=== PATIENT | male | born 1935 | race Caucasian/White ===

== ENCOUNTER → 2018-01-01 | Outpatient (CLI) | payer OTHER ==
[~2018-01-01] MED LIST: OPTIRAY 320 IV PRN
--- NOTE | 2018-01-01 12:23 | DIAGNOSTIC IMAGING REPORT ---
CT SCAN OF THE CHEST WITH IV CONTRAST CLINICAL HISTORY: Vocal cord paralysis. COMPARISON STUDY: PET/CT dated 11/16/1999. TECHNIQUE: Following the IV administration of 70 cc of Optiray 320, CT scan of the thorax was performed from the thoracic inlet to the upper abdomen. Images are reviewed in the axial, sagittal, and coronal planes. IV contrast was administered without complication. A dose lowering technique was utilized adhering to the principles of ALARA. The examination is degraded by streak artifact from the patient's arms which could not be elevated above the chest. CT DOSE: 856.77 mGycm FINDINGS: Thyroid: Imaged portions of the thyroid gland are normal in size and attenuation. Thoracic aorta: There is atherosclerotic calcification of the thoracic aorta. The arch demonstrates standard 3-vessel anatomy. The thoracic aorta is not well opacified. There is interstitial dilatation of the ascending thoracic aorta which measures up to 5.0 cm in diameter. Pulmonary vasculature: The main pulmonary arteries are markedly dilated indicating pulmonary artery hypertension. There are no filling defects identified in the central pulmonary vessels to indicate pulmonary embolus. Note that this examination was not protocoled for evaluation of the pulmonary arteries. Heart: The heart is markedly enlarged and without pericardial effusion. The coronary arteries are densely calcified. Lungs and pleural spaces: Advanced emphysematous change is identified. There is a 3.8 x 4.1 x 3.2 cm spiculated mass lesion with central cavitation identified in the right upper lobe seen on image #133. A spiculated left apical mass seen on image #64 measures 5.8 x 3.5 x 4.6 cm. There is intralobular septal thickening and nodularity throughout the left upper lobe suggesting lymphangitic spread of tumor. A 3.0 cm focus of pleural-based nodularity at the right lung base is seen #230. 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 There are small to moderate left and trace right pleural effusions. Mediastinum: There is no mediastinal lymphadenopathy. Jacinta: Clear. Axillae: There is no axillary lymphadenopathy. Upper abdomen: The partially imaged kidneys are atrophic. Cysts are present in the upper poles and measure up to 6.5 cm. A 2.1 cm left adrenal nodule meets CT criteria for a fat-containing adenoma. Small adenomas are also identified in the right adrenal gland. Scattered hepatic cysts measure up to 1.6 cm. Additional subcentimeter hepatic hypodensities also likely represent cysts but are too small for definitive characterization. Mild nodularity of the hepatic surface contour suggests early change of cirrhosis. Skeletal structures: The skeletal structures are osteopenic. There are moderate and age indeterminant compression deformities of T12 and L1, new from the 2009 examination. No lytic or blastic bony lesions are seen. Degenerative change is noted throughout the thoracic spine and in the shoulders. IMPRESSION: 1. Marked cardiomegaly and advanced emphysema with evidence of pulmonary artery hypertension. 2. There is a 5.8 cm spiculated mass at the left apex. This should be considered lung cancer until proven otherwise. Intralobular septal thickening nodularity throughout the left upper lobe is concerning for lymphangitic spread of tumor. 3. There is a 4.1 cm spiculated mass lesion in the right upper lobe with central cavitation. This should also be considered neoplasm until proven otherwise. 4. A 3 cm focus of pleural-based nodularity at the right lung base is indeterminant and a pleural metastasis is not excluded. 5. There is aneurysmal dilatation of the ascending thoracic aorta which measures up to 5.0 cm. 6. 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 7. Small to moderate left and trace right pleural effusions. 8. Nodularity of the hepatic surface contour suggests early change of cirrhosis. 9. Additional findings as above. Electronically signed by: Faraz Biswas M.D. 01/01/2018 12:22 PM Dictated Date/Time: 01/01/2018 12:07 PM
--- NOTE | 2018-01-01 12:31 | DIAGNOSTIC IMAGING REPORT ---
CT SCAN OF THE PARANASAL SINUSES CLINICAL HISTORY: Chronic sinusitis. COMPARISON STUDY: No priors. TECHNIQUE: High-resolution CT scan of the paranasal sinuses is performed. Images are reviewed in the axial, sagittal, and coronal planes. IV contrast was not administered for this examination. A dose lowering technique was utilized adhering to the principles of ALARA. CT DOSE: 642.74 mGycm FINDINGS: Maxillary antra: Trace dependent mucosal thickening is seen in the left. Clear on the right. Anterior ethmoid sinuses: Trace mucosal thickening is seen bilaterally. Posterior ethmoid sinuses: Clear. Sphenoid sinuses: Trace mucosal thickening seen in the left. Clear on the right. Frontal sinuses: Trace mucosal thickening is seen bilaterally. Ostiomeatal complexes: Patent bilaterally. An antrectomy defect is suggested in the left. Frontoethmoidal and sphenoethmoidal recesses: Patent bilaterally. Carotid arteries: The carotid arteries are covered and without septal attachments. Ethmoid roofs: The ethmoid roofs are symmetric. Nasal turbinates: A normal left middle nasal turbinate is not identified. Nasal septum: There is leftward deviation of the bony nasal septum anteriorly and rightward deviation posteriorly. Optic nerves: Covered. Orbits: The bony orbits are intact. Orbital contents are normal in appearance noting bilateral ocular lens implants. Calvarium: The skeletal structures are osteopenic. The imaged calvarium is normal in appearance Mastoid air cells: There are trace mastoid effusions. Brain parenchyma: Partially visualized brain parenchyma is within normal limits noting age-related involutional change. IMPRESSION: Minimal paranasal sinus disease as above. Electronically signed by: Faraz Biswas M.D. 01/01/2018 12:30 PM Dictated Date/Time: 01/01/2018 12:25 PM
== END | disposition home or self-care (01) ==
LOC: C.CTS 11:31
PROVIDERS: ATTEND Otolaryngology
DX: J38.00 Paralysis of vocal cords and larynx, unspecified (principal); J32.9 Chronic sinusitis, unspecified; I51.7 Cardiomegaly; J43.9 Emphysema, unspecified; I27.20 Pulmonary hypertension, unspecified; R91.1 Solitary pulmonary nodule; K76.9 Liver disease, unspecified

== ENCOUNTER → 2018-03-19 | Outpatient (CLI) | payer OTHER ==
[~2018-03-19] MED LIST changes: +FRS/40 PO; +LISI-729 PO; +METO50TA16 PO; +MULT-506 PO; -OPTIRAY 320 IV PRN; +OXGN; +POTA-639 PO; +RRALBUT2.5 NEB; +SENNTAB23 PO; +SIMV80TA2 PO; +SPIR25TA PO; +VNTHFA/IN INH; +WARF5TAB7 PO
--- NOTE | 2018-03-19 14:16 | DIAGNOSTIC IMAGING REPORT ---
PET/CT HISTORY: NON SMALL CELL LUNG CANCER TECHNIQUE: PET/CT was performed from the base of the skull through the pelvis following the intravenous administration of 13.7 mCi of F18-FDG. Non-contrast CT imaging was performed over the same range without breath-hold for attenuation correction of PET images and anatomic correlation, but not for primary interpretation as it is not of standard diagnostic quality. CT DOSE: COMPARISON: Chest CT 02/26/2018. FINDINGS: HEAD AND NECK: There is no FDG-avid disease or significant lymphadenopathy in the imaged portions of the head and the neck. CHEST: There is a single 5 mm FDG avid left subpectoral lymph node on image 55. This demonstrates an SUV max of 2.6. Partially loculated moderate left pleural effusion is again noted. This does not demonstrate significant FDG uptake. There is also a trace right pleural effusion. Scattered calcified pleural plaques and cardiomegaly are again noted. No FDG avid or enlarged mediastinal or hilar lymph nodes. Emphysema. There is a 5 cm left apical mass demonstrating FDG uptake with an SUV max of 14.7. Small branching adjacent nodule within the left upper lobe on image 60 which also demonstrate FDG uptake. This is consistent with a metastatic focus. There is mild interstitial thickening within the left lung apex adjacent to the large mass. This remains unchanged. There is a new 1 cm FDG avid left lower lobe nodule on image 79. This demonstrates an SUV max of 4.4. FDG avid left lower lobe cavitating 1.6 cm nodule is not significantly changed. 3 cm subpleural nodular density within the right lower lobe posteriorly does not demonstrate significant FDG uptake and likely represents round atelectasis. A 4.2 cm cavitary FDG avid mass within the right middle lobe demonstrates an SUV max of 7.9. A 1 cm spiculated nodule within the right middle lobe on image 104 demonstrating mild FDG uptake. This is also consistent with metastatic disease. Scattered left chest wall mild FDG uptake may be physiologic. ABDOMEN/PELVIS: There is a 12 mm FDG avid left adrenal gland nodule with an SUV max of 3.4. This is concerning for a metastatic focus. No FDG avid hepatic or splenic lesions. Bilateral renal cysts are noted. There is a 5.6 cm infrarenal abdominal aortic aneurysm. Mild aneurysmal dilatation the bilateral common iliac arteries. 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 No retroperitoneal lymphadenopathy. MUSCULOSKELETAL: Best seen in image 55 there is a 1.3 cm FDG avid focus within the posterior inferior T3 vertebral body. This demonstrates an SUV max of 3.4. However, no definite corresponding lesion by CT. IMPRESSION: 1. Multiple pulmonary masses/nodules as described above which demonstrate FDG uptake. This is consistent with a combination of primary bronchogenic malignancies and metastatic disease. 2. A 5 mm FDG avid left subpectoral lymph node concerning for metastatic disease. 3. A 12 mm left FDG avid adrenal gland nodule likely representing metastatic disease. 4. A 1.3 cm FDG avid focus within the T3 vertebral body without definite corresponding abnormality by CT. This could be due to degenerative change or a metastatic lesion. This bears watching on examinations. 5. A 5.6 cm infrarenal abdominal aortic aneurysm as well as bilateral iliac artery aneurysms as described above.. 6. Moderate left and trace right pleural effusions. Electronically signed by: Joaquin Fang M.D. 03/19/2018 2:15 PM Dictated Date/Time: 03/19/2018 1:28 PM
== END | disposition home or self-care (01) ==
LOC: C.PET 10:09
PROVIDERS: ATTEND Internal Medicine Hematology & Oncology
DX: C34.80 Malignant neoplasm of overlapping sites of unspecified bronchus and lung (principal)